=== PATIENT | female | born 1995 | race African-American/Black ===

== ENCOUNTER 2016-07-12 03:30 | Emergency (ER) | payer OTHER ==
[~2016-07-12] VITALS: Ht 160 cm; Wt 57.0 kg
[2016-07-12 03:40] VITALS: BP 123/78
== END 2016-07-12 06:45 | disposition left against medical advice (07) ==
LOC: ER 03:30
DX: J02.9 Acute pharyngitis, unspecified (principal); Z53.21 Procedure and treatment not carried out due to patient leaving prior to being seen by health care provider